=== PATIENT | female | born 1930 | race Caucasian/White ===

== ENCOUNTER 2018-12-05 15:33 | Observation (INO) | payer MEDICARE, OTHER ==
[~2018-12-05] VITALS: Ht 160 cm; Wt 52.2 kg
[~2018-12-05 15:33] MED LIST: ACET-1757 PO; IBUP-1222 PO; IBUP200T49 PO; LEVE500T53 PO; OMEP-110 PO; OMEP20TA62 PO; RALO60TA PO; [UNRECOGNIZED DRUG - OTHER] PO
[2018-12-05 16:33] LABS: BASOPHILS # (AUTO) 0.04 x10^3/uL (0-0.1); BASOPHILS % (AUTO) 1 % (0-1); EOSINOPHILS % (AUTO) 5 % (1-7); LYMPHOCYTES # (AUTO) 1.96 x10^3/uL (1-3.4); LYMPHOCYTES % (AUTO) 30 % (22-44); MD NO; MEAN CORPUSCULAR HEMOGLOBIN 24.5 pg (27.0-34.8); MEAN CORPUSCULAR HGB CONC 31.5 g/dL (32.4-35.8); MEAN CORPUSCULAR VOLUME 77.9 fL (80-100); MONOCYTES # (AUTO) 0.34 x10^3/uL (0.2-0.8); MONOCYTES % (AUTO) 5 % (2-9); NEUTROPHILS # (AUTO) 3.87 x10^3/uL (1.8-6.8); NEUTROPHILS % (AUTO) 59 % (42-75); PLATELET COUNT 336 x10^3/uL (130-400); RED BLOOD COUNT 3.91 x10^6/uL (3.82-5.3); RED CELL DISTRIBUTION WIDTH 18.1 % (9.6-15.2)
[2018-12-05 16:41] LABS: ALANINE AMINOTRANSFERASE 12 U/L (12-78); ALBUMIN 3.1 g/dL (3.4-5.0); ANION GAP 4 mmol/L (5-15); CALCIUM 8.8 mg/dL (8.5-10.1); CHLORIDE 115 mmol/L (98-107)
[2018-12-05 16:44] LABS: ALKALINE PHOSPHATASE 47 U/L (45-117); BILIRUBIN,TOTAL 0.4 mg/dL (0.2-1.0); CREATININE 0.75 mg/dL (0.55-1.02); TOTAL PROTEIN 6.1 g/dL (6.4-8.2)
--- NOTE | 2018-12-05 17:21 | NUR ---
TO ROOM FROM LOBBY. NAD.
--- NOTE | 2018-12-05 17:25 | NUR ---
lunch coverage: assumed care of pt on behalf of primary RN for lunch break only. pt ambulates to room from [facility] c/o RUQ/R epigastric pain intermittently for about 10 days. pt denies any fall or trauma. states that she was reaching for something on a high shelf and then started having pain. pt staets that she has had 2 episodes of SOB but denies at this time. pt states that she has also been having intermittent nausea but no vomiting. pt and family at bedside reports that she took an OTC pain medication but does not know the name a few hours [employer] with some relief. no other c/o at this time. lab has been drawn and PA has been to bedside for eval
--- NOTE | 2018-12-05 17:40 | NUR ---
lunch coverage: pt to RAD via vinh
--- NOTE | 2018-12-05 17:43 | NUR ---
PT IN RADIOLOGY AT THIS TIME
--- NOTE | 2018-12-05 17:48 | NUR ---
report to Deloris TINAJERO
--- NOTE | 2018-12-05 17:53 | NUR ---
REPORT FROM GEORGETTE TINAJERO. ASSUME CARE OF PT AT THIS TIME.
--- NOTE | 2018-12-05 18:10 | NUR ---
URINE COLLECTED/SENT TO LAB. EKG COMPLETED AT BS. CALL LIGHT WITHIN REACH, WARM BLANKETS PROVIDED.
[2018-12-05 18:22] LABS: MICROSCOPIC AUTO
[2018-12-05 18:23] LABS: CULTURE INDICATED? YES
[2018-12-05 18:43] LABS: TROPONIN I < 0.015 ng/mL (0.000-0.045)
--- NOTE | 2018-12-05 18:54 | NUR ---
CONTACT: DIYA PATRICIA [phone]
[2018-12-05] MEDS ORDERED: hydrALAzine 20 MG/ML, 1ML IVPush PRN (20:00)
[2018-12-05] MEDS ORDERED: ACETAMINOPHEN 325 MG TABLET PO PRN (20:00)
[2018-12-05] MEDS ORDERED: IBAN150T PO (20:33)
--- NOTE | 2018-12-05 20:51 | NUR ---
Mikki fine in [facility] - 12/05/18 at 2052 by JOSE G REPORT TO RYAN ALMAZAN PT READY FOR TRANSPORT TO [facility].
--- NOTE | 2018-12-05 20:52 | NUR ---
REPORT TO RYAN TINAJERO. PT READY FOR TRANSPORT TO FLOOR.
[2018-12-05] MEDS: PANTOPRAZOLE 20MG TABLET PO SCH (21:00)
[2018-12-06 02:00] VITALS: BP 133/74
[2018-12-06 05:49] LABS: BASOPHILS # (AUTO) 0.13 x10^3/uL (0-0.1); BASOPHILS % (AUTO) 2 % (0-1); EOSINOPHILS # (AUTO) 0.33 x10^3/uL (0-0.4); EOSINOPHILS % (AUTO) 6 % (1-7); LYMPHOCYTES # (AUTO) 1.62 x10^3/uL (1-3.4); LYMPHOCYTES % (AUTO) 31 % (22-44); MD NO; MEAN CORPUSCULAR HEMOGLOBIN 24.7 pg (27.0-34.8); MEAN CORPUSCULAR HGB CONC 31.5 g/dL (32.4-35.8); MEAN CORPUSCULAR VOLUME 78.3 fL (80-100); MEAN PLATELET VOLUME 9.1 fL (7.4-10.4); MONOCYTES # (AUTO) 0.43 x10^3/uL (0.2-0.8); MONOCYTES % (AUTO) 8 % (2-9); NEUTROPHILS # (AUTO) 2.69 x10^3/uL (1.8-6.8); NEUTROPHILS % (AUTO) 52 % (42-75); PLATELET COUNT 295 x10^3/uL (130-400); RED BLOOD COUNT 3.74 x10^6/uL (3.82-5.3); RED CELL DISTRIBUTION WIDTH 17.5 % (9.6-15.2)
[2018-12-06 05:59] LABS: CHLORIDE 110 mmol/L (98-107)
[2018-12-06] MEDS: PANTOPRAZOLE 20MG TABLET PO SCH (06:07)
[2018-12-06 06:13] LABS: ANION GAP 8 mmol/L (5-15); CALCIUM 8.1 mg/dL (8.5-10.1)
[2018-12-06 07:29] VITALS: BP 100/64
[2018-12-06] MEDS ORDERED: PANTOPROZOLE 40MG TABLET PO SCH (07:30)
[2018-12-06 08:29] LABS: INTERNATIONAL NORMALIZED RATIO 1.01 (0.93-1.1); PROTHROMBIN TIME 10.7 Seconds (9.6-11.5)
[2018-12-06] MEDS ORDERED: PROPOFOL 10 MG/ML, 20ML ONE (09:15)
[2018-12-06] MEDS ORDERED: hydrALAzine 20 MG/ML, 1ML IV PRN (10:00)
[2018-12-06] MEDS ORDERED: OXYcodone 5 MG/5 ML ORAL.SOL UDC PO PRN (10:00)
[2018-12-06] MEDS ORDERED: HALOPERIDOL 5 MG/ML IV PRN (10:00)
[2018-12-06] MEDS ORDERED: HYDROmorphone 2 MG/ML, 1ML IVPush PRN (10:00)
[2018-12-06] MEDS ORDERED: PROMETHAZINE 25 MG/ML, 1ML IV PRN (10:00)
[2018-12-06] MEDS ORDERED: LABETALOL 5MG/ML, 20ML IV PRN (10:00)
[2018-12-06] MEDS ORDERED: ALBUTEROL SULFATE 2.5 MG/3 ML NPPB PRN (10:00)
[2018-12-06] MEDS ORDERED: FENTANYL PF 100 MCG/2ML IV PRN (10:00)
[2018-12-06] MEDS ORDERED: SENNA/DOCUSATE TABLET PO PRN (11:00)
[2018-12-06] MEDS ORDERED: FERROUS SULFATE 325 MG TABLET PO SCH (12:00)
[2018-12-06] MEDS ORDERED: FERR-51 PO (13:26)
[2018-12-06] MEDS ORDERED: PANT20TA3 PO (13:26)
[2018-12-06] MEDS ORDERED: SENN1TAB8 PO (13:26)
[2018-12-06 14:00] VITALS: BP 128/78
[2018-12-06] MEDS ORDERED: OMEP-110 PO (14:30)
== END 2018-12-06 15:35 | disposition home or self-care (01) ==
LOC: ED 18:39 → INTOOBSV 18:43 → EDIP 18:43 → 4NOR 21:20 → DCLOUNGE 12-06 15:00
PROVIDERS: ADMIT Family Medicine; ATTEND Family Medicine
DX: K29.60 Other gastritis without bleeding (principal); D50.9 Iron deficiency anemia, unspecified; K21.9 Gastro-esophageal reflux disease without esophagitis; M81.0 Age-related osteoporosis without current pathological fracture; R11.0 Nausea
CPT/HCPCS: 36415; 43239; 71101; 74021; 80048; 80053; 81001; 83690; 83735; 84484; 85025; 85610; 85730; 87086; 88305; 93005; 99284; G0378; J2704